=== PATIENT | male | born 1995 | race Two or more races ===

== ENCOUNTER 2022-12-17 22:24 | Emergency (ER) | payer OTHER ==
[~2022-12-17] VITALS: Ht 175.3 cm; Wt 96.6 kg
[2022-12-18 00:56] VITALS: BP 140/86; PULSE 98; RESP 16; TEMP 98.1; O2SAT 99
[2022-12-18] MEDS ORDERED: TRIA0.1C4 EX (01:36)
== END 2022-12-18 01:44 | disposition home or self-care (01) ==
LOC: ER 22:24
DX: L73.9 Follicular disorder, unspecified (principal); F17.210 Nicotine dependence, cigarettes, uncomplicated; Z88.2 Allergy status to sulfonamides